=== PATIENT | female | born 1980 | race Two or more races ===

== ENCOUNTER 2023-06-22 14:53 | Emergency (ER) | payer OTHER ==
[~2023-06-22] VITALS: Ht 165.1 cm; Wt 70.3 kg
[~2023-06-22 14:53] MED LIST: CIPRO500 MG PO; FORTAMET1000 MG PO; GLIPIZIDE10 MG PO; INTESTINEX680 M1 PO; METFORMIN HCL500 MG PO; PEPCID40 MG PO
== END 2023-06-22 15:55 | disposition home or self-care (01) ==
LOC: ER 14:53
DX: L97.418 Non-pressure chronic ulcer of right heel and midfoot with other specified severity (principal); E11.9 Type 2 diabetes mellitus without complications; Z79.84 Long term (current) use of oral hypoglycemic drugs